=== PATIENT | male | born 1950 | race Caucasian/White ===

== ENCOUNTER 2017-04-07 11:33 | Emergency (ER) | payer MEDICARE, MEDICAID ==
[~2017-04-07] VITALS: Ht 167.6 cm; Wt 61.5 kg
[~2017-04-07 11:33] MED LIST: ACET325T PO; ASPI81TA81 PO; ATOR40TA16 PO; Aspirin Chew CHEW; COUM5TAB PO; LIPI40TA PO; LISI-519 PO; METO25TA3 PO; Pill Splitter OTHER; [UNRECOGNIZED DRUG - CODE] TD
[2017-04-07 11:41] VITALS: BP 86/56; PULSE 73; PULSE 81; RESP 16; RESP 21; TEMP 97.6; TEMP 97.8; O2SAT 98
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
[2017-04-07] MEDS ORDERED: NITR0.1D T-DERMAL (12:03)
[2017-04-07] MEDS ORDERED: TIZA4TAB PO (12:03)
[2017-04-07] MEDS ORDERED: ZINC220T PO (12:03)
[2017-04-07] MEDS ORDERED: GENT0.1O2 TOPICAL (12:03)
[2017-04-07] MEDS ORDERED: ASCO500T PO (12:03)
[2017-04-07] MEDS ORDERED: NUED20CA PO (12:03)
[2017-04-07] MEDS ORDERED: IPRASOL NEB (12:03)
[2017-04-07] MEDS ORDERED: TYLE325T PO (12:03)
[2017-04-07] MEDS ORDERED: COUM1TAB PO (12:03)
[2017-04-07] MEDS ORDERED: ZOFR4TAB PO (12:03)
[2017-04-07] MEDS ORDERED: COUM4TAB PO (12:03)
[2017-04-07] MEDS ORDERED: ATIV2INJ2 IM (12:03)
[2017-04-07] MEDS ORDERED: MULTTAB4 PO (12:03)
[2017-04-07 12:28] LABS: INTERNATIONAL NORMALIZED RATIO 3.2 RATIO; PROTHROMBIN TIME - PATIENT 36.9 SEC (9.8-11.6)
--- NOTE | 2017-04-07 12:32 | RADRPT ---
EXAM DATE/TIME: 04/07/2017 12:14 [facility] COMPARISON: MRI BRAIN W/O CONTRAST, September 06, 2016, 19:52. CT BRAIN W/O CONTRAST, September 06, 2016, 15:56. INDICATIONS : Trauma; fall. RADIATION DOSE: 32.35 CTDIvol (mGy) MEDICAL HISTORY : Stroke. Cardiovascular disease Hypertension. SURGICAL HISTORY : None. ENCOUNTER: Initial ACUITY: 1 day PAIN SCALE: 3/10 LOCATION: cranial TECHNIQUE: Multiple contiguous axial images were obtained of the head. Using automated exposure control and adj ustment of the mA and/or kV according to patient size, radiation dose was kept as low as reasonably a chievable to obtain optimal diagnostic quality images. DICOM format image data is available electro nically for review and comparison. FINDINGS: There is no evidence for intracranial hemorrhage, mass effect, mass lesions, or edema. The visualize d bony structures appear intact. Slight degree of brain atrophy is seen. Slight periventricular whit e matter changes are seen nonspecific mostly consistent with chronic small vessel ischemic changes. There are no signs of acute infarction for technique. There is bilateral encephalomalacia involving t he right frontal, parietal temporal lobes and left occipital lobe at the site of previously seen infa rctions. CONCLUSION: Chronic changes and old infarctions. Ana Vasques MD on April 07, 2017 at 12:28 Board Certified Radiologist. This report was verified electronically.
[2017-04-07 12:56] VITALS: BP 90/56; PULSE 69; RESP 16; O2SAT 99
[2017-04-07] MEDS ORDERED: SODIUM CHLOR 0.9% 1000 ML INJ 1,000 ML IV ONE (13:00)
[2017-04-07 13:24] VITALS: BP 99/64; PULSE 68; RESP 15; O2SAT 99
[2017-04-07 13:48] VITALS: BP 103/60; PULSE 63; RESP 18; O2SAT 99
[2017-04-07 14:29] LABS: POTASSIUM 4.3 MEQ/L (3.5-5.1)
[2017-04-07 15:32] VITALS: BP 122/57; PULSE 69; RESP 18; O2SAT 98
== END 2017-04-07 16:59 | disposition home or self-care (01) ==
LOC: NEPC 11:33
DX: S09.90XA Unspecified injury of head, initial encounter (principal); W06.XXXA Fall from bed, initial encounter; Y92.129 Unspecified place in nursing home as the place of occurrence of the external cause; Z79.01 Long term (current) use of anticoagulants
CPT/HCPCS: 70450; 80048; 85610; 99284; J7030

== ENCOUNTER 2017-06-28 20:53 | Emergency (ER) | payer MEDICARE, MEDICAID ==
[~2017-06-28] VITALS: Ht 177.8 cm; Wt 65.0 kg
[~2017-06-28 20:53] MED LIST changes: -ACET325T PO; +ASCO500T PO; +ATIV2INJ2 IM; -ATOR40TA16 PO; -Aspirin Chew CHEW; +COUM1TAB PO; +COUM4TAB PO; -COUM5TAB PO; +GENT0.1O2 TOPICAL; +IPRASOL NEB; +MULTTAB4 PO; +NITR0.1D T-DERMAL; +NUED20CA PO; -Pill Splitter OTHER; +TIZA4TAB PO; +TYLE325T PO; +ZINC220T PO; +ZOFR4TAB PO; -[UNRECOGNIZED DRUG - CODE] TD
[2017-06-28 21:13] VITALS: BP 108/56; PULSE 60; RESP 16; TEMP 99.3; O2SAT 96
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
--- NOTE | 2017-06-28 21:55 | RADRPT ---
EXAM DATE/TIME: 06/28/2017 21:25 [facility] COMPARISON: CHEST SINGLE AP, September 06, 2016, 15:04. INDICATIONS : Confusion MEDICAL HISTORY : Stroke. Cardiovascular disease Hypertension SURGICAL HISTORY : None. ENCOUNTER: Initial ACUITY: 1 day PAIN SCORE: 0/10 LOCATION: chest FINDINGS: A single view of the chest demonstrates a mild basilar scarring. No focal consolidation. No effusion or pneumothorax. Heart size is within normal limits. CONCLUSION: 1. Minimal basilar scarring. No focal consolidation or effusion. Mack Ozuna MD on June 28, 2017 at 21:52 Board Certified Radiologist. This report was verified electronically.
[2017-06-28 21:56] LABS: AUTOMATED NEUTROPHIL # 4.7 TH/MM3 (1.8-7.7); BASOPHIL % 0.4 % (0.0-2.0); EOSINOPHIL # 0.3 TH/MM3 (0-0.4); EOSINOPHIL % 4.7 % (0.0-4.0); HEMO FLAGS DIFF FINAL; LYMPH % 21.3 % (9.0-44.0); LYMPHOCYTE # 1.5 TH/MM3 (1.0-4.8); MEAN CELL VOLUME 91.5 FL (80.0-100.0); MEAN CORPUSCULAR HGB CONC 33.9 % (32.0-36.0); MONO % 8.3 % (0.0-8.0); NEUT % 65.3 % (16.0-70.0); PLATELET COUNT 208 TH/MM3 (150-450); RED BLOOD COUNT 3.82 MIL/MM3 (4.50-5.90); RED CELL DISTRIBUTION WIDTH 13.8 % (11.6-17.2); WHITE BLOOD COUNT 7.1 TH/MM3 (4.0-11.0)
[2017-06-28 22:14] LABS: GLOMERULAR FILTRATION RATE 85 ML/MIN (>89)
[2017-06-28 22:15] LABS: APTT (PATIENT) 25.8 SEC (24.3-30.1); PROTHROMBIN TIME - PATIENT 11.2 SEC (9.8-11.6)
[2017-06-28 22:16] LABS: ANION GAP 4 MEQ/L (5-15); BICARBONATE 28.6 MEQ/L (21.0-32.0); BLOOD UREA NITROGEN 19 MG/DL (7-18); CHLORIDE 106 MEQ/L (98-107); POTASSIUM 4.6 MEQ/L (3.5-5.1); SODIUM (NA) 139 MEQ/L (136-145)
--- NOTE | 2017-06-28 22:20 | RADRPT ---
EXAM DATE/TIME: 06/28/2017 21:57 [facility] COMPARISON: No previous studies available for comparison. INDICATIONS : Altered mental status. Confusion. RADIATION DOSE: 56.35 CTDIvol (mGy) MEDICAL HISTORY : Cerebrovascular disease. Hypertension. SURGICAL HISTORY : None. ENCOUNTER: Initial ACUITY: 1 day PAIN SCALE: 0/10 LOCATION: cranial TECHNIQUE: Multiple contiguous axial images were obtained of the head. Using automated exposure control and adj ustment of the mA and/or kV according to patient size, radiation dose was kept as low as reasonably a chievable to obtain optimal diagnostic quality images. DICOM format image data is available electro nically for review and comparison. FINDINGS: Compare April 07. Again seen is remote infarct in the right hemisphere predominantly involving the rig ht parietal region. Also remote small infarct left occipital lobe. Chronic white matter ischemic gillette ges. No significant change from March. No abnormal extra-axial fluid. No acute bony abnormalities. Pre vious fixation left maxillary sinus. CONCLUSION: 1. Stable exam since April 07. Remote infarct right hemisphere mostly posteriorly and small remote inf arct left occipital lobe. Mack Ozuna MD on June 28, 2017 at 22:16 Board Certified Radiologist. This report was verified electronically.
[2017-06-29 06:02] VITALS: BP 115/65
== END 2017-06-29 06:08 ==
LOC: NEPD 20:53
DX: R41.0 Disorientation, unspecified (principal); Z86.73 Personal history of transient ischemic attack (TIA), and cerebral infarction without residual deficits; F32.9 Major depressive disorder, single episode, unspecified; E78.5 Hyperlipidemia, unspecified; I10 Essential (primary) hypertension; F17.200 Nicotine dependence, unspecified, uncomplicated; Z79.01 Long term (current) use of anticoagulants; Z79.899 Other long term (current) drug therapy; R79.89 Other specified abnormal findings of blood chemistry
CPT/HCPCS: 70450; 71010; 80048; 83690; 84484; 85025; 85610; 85730; 99285

== ENCOUNTER 2017-11-10 05:05 | Emergency (ER) | payer MEDICARE, MEDICAID ==
[2017-11-10 05:07] VITALS: BP 129/78; PULSE 67; RESP 16; TEMP 98.3; O2SAT 98
[2017-11-10 05:16] VITALS: O2SAT 97
[2017-11-10 05:59] LABS: AUTOMATED NEUTROPHIL # 4.7 TH/MM3 (1.8-7.7); BASOPHIL % 0.5 % (0.0-2.0); EOSINOPHIL # 0.3 TH/MM3 (0-0.4); EOSINOPHIL % 3.5 % (0.0-4.0); HEMATOCRIT 40.4 % (39.0-51.0); HEMOGLOBIN 13.5 GM/DL (13.0-17.0); LYMPH % 25.2 % (9.0-44.0); LYMPHOCYTE # 1.8 TH/MM3 (1.0-4.8); MEAN CELL VOLUME 89.2 FL (80.0-100.0); MEAN CORPUSCULAR HEMOGLOBIN 29.9 PG (27.0-34.0); MEAN CORPUSCULAR HGB CONC 33.6 % (32.0-36.0); MONO % 6.5 % (0.0-8.0); MONOCYTE # 0.5 TH/MM3 (0-0.9); NEUT % 64.3 % (16.0-70.0); PLATELET COUNT 267 TH/MM3 (150-450); RED BLOOD COUNT 4.53 MIL/MM3 (4.50-5.90); RED CELL DISTRIBUTION WIDTH 14.1 % (11.6-17.2); WHITE BLOOD COUNT 7.3 TH/MM3 (4.0-11.0)
[2017-11-10 06:00] VITALS: BP 108/62; PULSE 58; RESP 16; O2SAT 98
--- NOTE | 2017-11-10 06:00 | RADRPT ---
EXAM DATE/TIME: 11/10/2017 05:44 [facility] COMPARISON: CT BRAIN W/O CONTRAST, June 28, 2017, 21:57. INDICATIONS : Syncope; possible seizure. RADIATION DOSE: 56.35 CTDIvol (mGy) MEDICAL HISTORY : Myocardial infarction. Cerebrovascular disease. Hypercholesterolemia.Hypertension SURGICAL HISTORY : None. ENCOUNTER: Initial ACUITY: 1 day PAIN SCALE: 0/10 LOCATION: cranial TECHNIQUE: Multiple contiguous axial images were obtained of the head. Using automated exposure control and adj ustment of the mA and/or kV according to patient size, radiation dose was kept as low as reasonably a chievable to obtain optimal diagnostic quality images. DICOM format image data is available electro nically for review and comparison. FINDINGS: CEREBRUM: The ventricles are normal for age. No evidence of midline shift, mass lesion, hemorrhage or acute in farction. No extra-axial fluid collections are seen. Encephalomalacia related to an old infarct of t he right parietal, occipital and temporal lobes again noted. A small cortical and white matter old in farct is seen of the left occipital lobe. There is also some white matter encephalomalacia of the rig ht frontal lobe. Diffuse chronic white matter changes otherwise. POSTERIOR FOSSA: The cerebellum and brainstem are intact. The 4th ventricle is midline. The cerebellopontine angle i s unremarkable. EXTRACRANIAL: The visualized portion of the orbits is acutely intact. Previous facial reconstruction on the left. SKULL: The calvaria is intact. No evidence of skull fracture. CONCLUSION: 1. No acute intracranial abnormality demonstrated. 2. Chronic ischemic and infarct changes as above; no change from prior study. Fam Glez MD on November 10, 2017 at 5:57 Board Certified Radiologist. This report was verified electronically.
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
[2017-11-10 06:09] LABS: BICARBONATE 27.2 MEQ/L (21.0-32.0); BLOOD UREA NITROGEN 12 MG/DL (7-18); CALCIUM 8.7 MG/DL (8.5-10.1); CHLORIDE 107 MEQ/L (98-107); GLOMERULAR FILTRATION RATE 75 ML/MIN (>89); GLUCOSE,RANDOM 94 MG/DL (74-106); SODIUM (NA) 141 MEQ/L (136-145)
[2017-11-10] MEDS ORDERED: COUM7.5T PO (06:11)
[2017-11-10] MEDS ORDERED: [UNRECOGNIZED DRUG - CODE] T-DERMAL (06:11)
--- NOTE | 2017-11-10 06:33 | RADRPT ---
EXAM DATE/TIME: 11/10/2017 06:22 [facility] COMPARISON: CHEST SINGLE AP, June 28, 2017, 21:25. INDICATIONS : Syncopal episode. MEDICAL HISTORY : Cerebrovascular disease. Hypercholesterolemia. Hypertension. [place] SURGICAL HISTORY : None. ENCOUNTER: Initial ACUITY: 1 day PAIN SCORE: 0/10 LOCATION: Bilateral chest FINDINGS: A single view of the chest demonstrates the lungs to be symmetrically aerated without evidence of mas s, infiltrate or effusion. The cardiomediastinal contours are unremarkable. Osseous structures are intact. CONCLUSION: No acute cardiopulmonary disease demonstrated. Fam Glez MD on November 10, 2017 at 6:31 Board Certified Radiologist. This report was verified electronically.
[2017-11-10 06:37] LABS: TROPONIN I LESS THAN 0.02 NG/ML (0.02-0.05)
[2017-11-10 07:36] LABS: BACTERIA, URINE RARE /hpf; BILIRUBIN, URINE NEG (NEG); BLOOD, URINE NEG (NEG); GLUCOSE,URINE NEG (NEG); HYALINE CAST, URINE 4 /lpf (RARE); KETONE, URINE NEG (NEG); MUCUS URINE FEW /lpf (OCC); NITRITE,URINE NEG (NEG); URINE COLOR YELLOW (YELLW/STRAW); URINE LEUKOCYTE ESTERASE NEG (NEG)
--- NOTE | 2017-11-10 08:12 | PD ---
Physical Exam Narrative Patient signed out to me by Dr. Pickett, please see her documentation for complete details. Briefly, patient is a 67 year old male sent from his [facility] for possible seizure activity. Patient was not observed to have any seizure like activity by EMS or here in the ED. Currently, patient is resting comfortably. Lungs CTA, heart RRR. Data Data Last Documented VS Vital Signs Date Time Temp Pulse Resp B/P (MAP) Pulse Ox O2 Delivery O2 Flow Rate FiO2 11/10/17 06:00 58 16 108/62 (77) 98 Room Air 11/10/17 05:07 98.3 Orders Orders Blood Glucose (11/10/17 05:13) Iv Access Insert/Monitor (11/10/17 05:13) Ecg Monitoring (11/10/17 05:13) Oxygen Administration (11/10/17 05:13) Basic Metabolic Panel (Bmp) (11/10/17 05:13) Complete Blood Count With Diff (11/10/17 05:13) Urinalysis - C+S If Indicated (11/10/17 05:13) Electrocardiogram (11/10/17 ) Oximetry (11/10/17 05:13) Ct Brain W/O Iv Contrast(Rout) (11/10/17 ) Chest, Single Ap (11/10/17 ) Troponin I (11/10/17 05:15) Labs Laboratory Tests Test 11/10/17 05:15 11/10/17 06:50 White Blood Count 7.3 TH/MM3 Red Blood Count 4.53 MIL/MM3 Hemoglobin 13.5 GM/DL Hematocrit 40.4 % Mean Corpuscular Volume 89.2 FL Mean Corpuscular Hemoglobin 29.9 PG Mean Corpuscular Hemoglobin Concent 33.6 % Red Cell Distribution Width 14.1 % Platelet Count 267 TH/MM3 Mean Platelet Volume 9.0 FL Neutrophils (%) (Auto) 64.3 % Lymphocytes (%) (Auto) 25.2 % Monocytes (%) (Auto) 6.5 % Eosinophils (%) (Auto) 3.5 % Basophils (%) (Auto) 0.5 % Neutrophils # (Auto) 4.7 TH/MM3 Lymphocytes # (Auto) 1.8 TH/MM3 Monocytes # (Auto) 0.5 TH/MM3 Eosinophils # (Auto) 0.3 TH/MM3 Basophils # (Auto) 0.0 TH/MM3 CBC Comment DIFF FINAL Differential Comment Blood Urea Nitrogen 12 MG/DL Creatinine 1.00 MG/DL Random Glucose 94 MG/DL Calcium Level 8.7 MG/DL Sodium Level 141 MEQ/L Potassium Level 4.2 MEQ/L Chloride Level 107 MEQ/L Carbon Dioxide Level 27.2 MEQ/L Anion Gap 7 MEQ/L Estimat Glomerular Filtration Rate 75 ML/MIN Troponin I LESS THAN 0.02 NG/ML Urine Color YELLOW Urine Turbidity CLEAR Urine pH 6.0 Urine Specific [place] 1.015 Urine Protein TRACE mg/dL Urine Glucose (UA) NEG mg/dL Urine Ketones NEG mg/dL Urine Occult Blood NEG Urine Nitrite NEG Urine Bilirubin NEG Urine Urobilinogen LESS THAN 2.0 MG/DL Urine Leukocyte Esterase NEG Urine RBC 1 /hpf Urine WBC 1 /hpf Urine Bacteria RARE /hpf Urine Hyaline Casts 4 /lpf Urine Granular Casts 3 /lpf Urine Mucus FEW /lpf Microscopic Urinalysis Comment CULT NOT INDICATED MDM Supervised Visit with ROSALVA: No Narrative Course Labs show no acute abnormalities. Urinalysis is negative for UTI. CT head performed shows no acute abnormalities. Patient will be discharged back to his facility. Advised to follow up with his doctor. Advised to return at any time for any worsening symptoms. Diagnosis Primary Impression: Seizure-like activity Patient Instructions: General Instructions, New Onset Absence Seizures in Adults (ED) Additional Instruction: It is unclear whether or not you had a seizure. Follow up with your doctor. Return to the ED as needed for any worsening symptoms. Disposition: 01 DISCHARGE HOME Condition: Stable Ellie Vazquez MD Nov 10, 2017 08:12
[2017-11-10 08:38] VITALS: BP 139/77
[2017-11-10 11:45] VITALS: BP 145/78
--- NOTE | 2017-11-10 12:48 | EKG ---
Date Performed: 11/10/2017 Time Performed: 05:21:50 PTAGE: 67 years EKG: Sinus rhythm LEFT ANTERIOR FASCICULAR BLOCK ABNORMAL ECG PREVIOUS TRACING : 09/07/2016 03.11 Compared to previous tracing, inferior and lateral T wave i nversion has resolved. DOCTOR: Rah Washington Interpretating Date/Time 11/10/2017 12:47:17
== END 2017-11-10 13:28 | disposition home or self-care (01) ==
LOC: NEPC 05:05
DX: R56.9 Unspecified convulsions (principal); E78.00 Pure hypercholesterolemia, unspecified; I10 Essential (primary) hypertension; I25.2 Old myocardial infarction; I25.10 Atherosclerotic heart disease of native coronary artery without angina pectoris; R94.31 Abnormal electrocardiogram [ECG] [EKG]; Z79.01 Long term (current) use of anticoagulants
CPT/HCPCS: 70450; 71045; 80048; 81001; 84484; 85025; 93005; 99285

== ENCOUNTER 2018-03-29 05:06 | Observation (INO) ==
--- NOTE | 2018-03-29 05:20 | ED ---
HPI General Chief Complaint: Altered Mental Status Stated Complaint: Medical/EVAC [facility] Time Seen by Provider: 03/29/18 05:12 Source: patient and old records reviewed Mode of arrival: EMS History of Present Illness HPI Narrative: 67-year-old man, resident of [facility], history of stroke with left-sided contractures and hemiparesis, as well as protein S deficiency on this, presents to the emergency department after reported seizure activity. History is obtained from EMS. Nursing staff stated that roommate heard him thrashing around witnessed seizure-like activity. On EMS arrival he appeared postictal. He has been coming around since then. Patient states he feels fine. No headache. Otherwise been feeling generally well and healthy prior to this. Related Data Home Medications Medication Instructions Recorded Confirmed apixaban [Eliquis] BID 03/29/18 aspirin [Aspir-81] 81 mg PO DAILY 03/29/18 03/29/18 atorvastatin [Lipitor] 40 mg PO DAILY 03/29/18 03/29/18 dextromethorphan-quinidine 1 cap PO Q12H 03/29/18 03/29/18 [Nuedexta] escitalopram oxalate [Lexapro] 10 mg PO DAILY 03/29/18 03/29/18 lisinopril 5 mg PO DAILY 03/29/18 03/29/18 metoprolol succinate 12.5 mg PO BID 03/29/18 03/29/18 mirtazapine 7.5 mg PO DAILY 03/29/18 03/29/18 multivitamin [Multiple Vitamins] 1 tab PO DAILY 03/29/18 03/29/18 nitroglycerin [Nitro-Dur] 03/29/18 tizanidine 4 mg PO BID PRN 03/29/18 03/29/18 Allergies Allergy/AdvReac Type Severity Reaction Status Date / Time No Known Allergies Allergy Unverified 03/29/18 05:42 Review of Systems ROS Unobtainable unobtainable due to mental condition PMFSH Medical History Medical History CVA (cerebral vascular accident) (Acute) Depression (Acute) HTN (hypertension) (Acute) Left spastic hemiplegia (Acute) Protein S deficiency (Acute) Social History Social History Recent Out of Country Travel within the Last 8 Weeks: No Exam Narrative Exam Narrative: GENERAL: 67-year-old man, no acute distress. SKIN: Focused skin assessment warm/dry. HEAD: Atraumatic. Normocephalic. EYES: Pupils equal and round. No scleral icterus. No injection or drainage. ENT: No nasal bleeding or discharge. Mucous membranes pink and moist. NECK: Trachea midline. No JVD. CARDIOVASCULAR: Regular rate and rhythm. No murmur appreciated. RESPIRATORY: No accessory muscle use. Clear to auscultation. Breath sounds equal bilaterally. GASTROINTESTINAL: Abdomen soft, non-tender, nondistended. Hepatic and splenic margins not palpable. MUSCULOSKELETAL: No obvious deformities. Flexion contractures of the left upper extremity elbow and the wrist. NEUROLOGICAL: Awake and alert. Dysarthric speech. Minimal facial asymmetry. Left arm with spastic paresis the elbow and the wrist. Course Initial Documented Vital Signs Pulse Rate 60 03/29/18 05:16 Respiratory Rate 18 03/29/18 05:16 Blood Pressure 127/63 03/29/18 05:16 Pulse Oximetry 99 03/29/18 05:16 Last Documented Vital Signs Pulse Rate 60 03/29/18 05:16 Respiratory Rate 18 03/29/18 05:16 Blood Pressure 127/63 03/29/18 05:16 Pulse Oximetry 97 03/29/18 05:21 Medical Decision Making [facility] Narrative Medical decision making narrative: 67-year-old man, history of strokes, on Eliquis for here with possible seizure. Looks well. EMS reports postictal confusion. Will check CT, labs, reassess. Workups unremarkable. 67-year-old man, extensive medical history, possible first-time seizure. No recurrent seizures in the ED. recommend follow-up as an outpatient. Lab Data Lab results reviewed: Yes I reviewed the patient's lab results. Result diagrams: 03/29/18 05:20 03/29/18 05:20 Lab Results 03/29/18 03/29/18 03/29/18 Range/Units 05:20 05:20 05:20 WBC 7.5 (4.0-11.0) th/mm3 RBC 4.42 L (4.50-5.90) mil/mm3 Hgb 13.4 (13.0-17.0) gm/dL Hct 40.1 (39.0-51.0) % MCV 90.8 (80.0-100.0) fL MCH 30.4 (27.0-34.0) pg MCHC 33.5 (32.0-36.0) % RDW 14.1 (11.6-17.2) % Plt Count 236 (150-450) th/mm3 MPV 8.9 (7.0-11.0) fL Neut % (Auto) 71.8 H (16.0-70.0) % Lymph % (Auto) 18.6 (9.0-44.0) % [place] % (Auto) 6.5 (0.0-8.0) % Eos % (Auto) 2.7 (0.0-4.0) % Baso % (Auto) 0.4 (0.0-2.0) % Neut # (Auto) 5.4 (1.8-7.7) th/mm3 Lymph # (Auto) 1.4 (1.0-4.8) th/mm3 [place] # (Auto) 0.5 (0.0-0.9) th/mm3 Eos # (Auto) 0.2 (0.0-0.4) th/mm3 Baso # (Auto) 0.0 (0.0-0.2) th/mm3 WBC Differential . Differential Comment Auto diff final PT 10.4 (9.8-11.6) sec INR 1.0 Ratio APTT 25.5 (24.3-30.1) sec Sodium 143 (136-145) meq/L Potassium 3.9 (3.5-5.1) meq/L Chloride 107 (98-107) meq/L Carbon Dioxide 28.2 (21.0-32.0) meq/L Anion Gap 8 (5-15) meq/L BUN 16 (7-18) mg/dL Creatinine 0.95 (0.60-1.30) mg/dL Estimated GFR 79 L (>89) mL/min Random Glucose 87 (74-106) mg/dL Calcium 8.8 (8.5-10.1) mg/dL Total Creatine Kinase 119 (39-308) U/L Troponin I Less than 0.02 L (0.02-0.05) ng/mL Imaging Data Radiologist's impression: ITS Impressions Head CT 03/29/18 05:12 CONCLUSION: 1. No acute intracranial abnormality. 2. Multifocal old infarcts. Chest X-Ray 03/29/18 05:13 CONCLUSION: No acute cardiopulmonary disease Head CT negative, chest x-ray negative Discharge Plan Discharge Disposition Patient Disposition: 03 Discharge to SNF Discharge Condition Condition: Stable Discharge Order Discharge Orders: Discharge Order (Routine); Ordered 03/29/18 Ordered By: Anish Bentley Discharge Details Diagnosis: Seizure Physicians Team ED Provider: Anish Bentley Primary Care Provider: Papa Sigala Rxs /Orders / Referrals /Forms Prescriptions: No Action apixaban [Eliquis] 5 mg Tablet BID RF: 0 multivitamin [Multiple Vitamins] Tablet 1 tab PO DAILY RF: 0 atorvastatin [Lipitor] 40 mg Tablet 40 mg PO DAILY RF: 0 nitroglycerin [Nitro-Dur] 0.1 mg/hr Patch 24 Hour RF: 0 tizanidine 4 mg Tablet 4 mg PO BID PRN (Reason: Muscle Spasm) RF: 0 aspirin [Aspir-81] 81 mg Tablet,Delayed Release (Dr/Ec) 81 mg PO DAILY RF: 0 lisinopril 5 mg Tablet 5 mg PO DAILY RF: 0 metoprolol succinate 25 mg Tablet Extended Release 24 Hr 12.5 mg PO BID RF: 0 escitalopram oxalate [Lexapro] 10 mg Tablet 10 mg PO DAILY RF: 0 mirtazapine 7.5 mg Tablet 7.5 mg PO DAILY RF: 0 dextromethorphan-quinidine [Nuedexta] 20-10 mg Capsule 1 cap PO Q12H RF: 0 Discharge Instructions Patient Printed Instructions: Altered Mental Status (ED) Additional Instructions: Patient with possible first-time seizure. ED workup negative. Recommend outpatient follow-up with neurology. Status ED Status: Ready for Discharge
--- NOTE | 2018-03-29 05:46 | CT ---
EXAM DATE: 03/29/2018 5:41 AM EDT AGE/SEX: 67 years / Male INDICATIONS: Altered mental status. Seizure. CLINICAL DATA: This is the patient's initial encounter. Patient reports that signs and symptoms have been present for 1 day and indicates a pain score of Nonresponsive. MEDICAL/SURGICAL HISTORY: Cerebrovascular disease. Hypertension. None. RADIATION DOSE: 56.35 CTDI (mGy) COMPARISON: [facility] – [place], [place] BRAIN W/O CONTRAST, 11/10/2017. . TECHNIQUE: CT of the head without contrast. Using automated exposure control and adjustment of the mA and/or kV according to patient size, radiation dose was kept as low as reasonably achievable to ob tain optimal diagnostic quality images. DICOM format image data is available electronically for revi ew and comparison. FINDINGS: Cerebrum: Old infarcts/encephalomalacia in the right frontal lobe, right parietal lobe and left occi pital lobe are stable in appearance. High density again seen within the right parietal infarct, stabl e in appearance. Scattered areas of low attenuation throughout the white matter. The ventricles are n ormal for age. No evidence of midline shift, mass lesion, hemorrhage or acute infarction. No extraa xial fluid collections are seen. Posterior Fossa: The cerebellum and brainstem are intact. The 4th ventricle is midline. The cerebe llopontine angle is unremarkable. Extracranial: The visualized portion of the orbits is intact. Plate and screws along the left maxill lillian sinus. Bilateral maxillary sinus disease. Skull: The calvaria is intact. No evidence of skull fracture. CONCLUSION: 1. No acute intracranial abnormality. 2. Multifocal old infarcts. Electronically signed by: Freddy Wooten MD 03/29/2018 5:45 AM EDT
--- NOTE | 2018-03-29 05:47 | XR ---
EXAM DATE: 03/29/2018 5:33 AM EDT AGE/SEX: 67 years / Male INDICATIONS: Syncope. CLINICAL DATA: This is the patient's initial encounter. Patient reports that signs and symptoms have been present for 1 day and indicates a pain score of 0/10. MEDICAL/SURGICAL HISTORY: . Myocardial infarction. Cerebrovascular disease. Hypercholesterolemi a.Hypertension. Stroke. None. [place] [facility] [place] . FINDINGS: A single AP view of the chest demonstrates the lungs to be symmetrically aerated without evidence of mass, infiltrate or effusion. The cardiomediastinal contours are unremarkable. Osseous structures a re intact. CONCLUSION: No acute cardiopulmonary disease Electronically signed by: Freddy Wooten MD 03/29/2018 5:45 AM EDT
[2018-03-29 06:00] LABS: Baso % (Auto) 0.4 % (0.0-2.0); Eos # (Auto) 0.2 th/mm3 (0.0-0.4); Eos % (Auto) 2.7 % (0.0-4.0); Hematocrit 40.1 % (39.0-51.0); Hemoglobin 13.4 gm/dL (13.0-17.0); Lymph # (Auto) 1.4 th/mm3 (1.0-4.8); Lymph % (Auto) 18.6 % (9.0-44.0); Mean Corpuscular HGB Conc 33.5 % (32.0-36.0); Mean Corpuscular Hemoglobin 30.4 pg (27.0-34.0); Mean Corpuscular Volume 90.8 fL (80.0-100.0); Mean Platelet Volume 8.9 fL (7.0-11.0); Mono # (Auto) 0.5 th/mm3 (0.0-0.9); Mono % (Auto) 6.5 % (0.0-8.0); Neut # (Auto) 5.4 th/mm3 (1.8-7.7); Neut % (Auto) 71.8 % (16.0-70.0); Platelet Count 236 th/mm3 (150-450); Red Blood Count 4.42 mil/mm3 (4.50-5.90); Red Cell Distribution Width 14.1 % (11.6-17.2); White Blood Count 7.5 th/mm3 (4.0-11.0)
[2018-03-29 06:22] LABS: Activated Partial Thrombo Time 25.5 sec (24.3-30.1); Prothrombin Time 10.4 sec (9.8-11.6)
[2018-03-29 06:24] LABS: Anion Gap 8 meq/L (5-15); Blood Urea Nitrogen 16 mg/dL (7-18); Calcium 8.8 mg/dL (8.5-10.1); Carbon Dioxide 28.2 meq/L (21.0-32.0); Chloride 107 meq/L (98-107); Glomerular Filtration Rate 79 mL/min (>89); Glucose,Random 87 mg/dL (74-106); Potassium 3.9 meq/L (3.5-5.1); Sodium 143 meq/L (136-145)
[2018-03-29 06:27] LABS: Creatine Kinase 119 U/L (39-308)
[2018-03-29 06:39] LABS: Creatine Kinase MB 2.2 ng/mL (0.5-3.6)
--- NOTE | 2018-03-29 11:14 | P.HPIM ---
History of Present Illness Primary Care Physician: Papa Sigala MD Chief Complaint: seizure History of Present Illness: patient is a 67 y/o male with history of CVA,CAD,hypertension, dyslipidemia who was brought to ER after he had a seizure at [facility].although he doesn't recall the seizure. he says that he started some epigastric pain earlier today. pain had no radiation and with no associated nausea,vomiting, sob. while he was being evaluated in ER he had another witnessed seizure in ER. at the time of my evaluation he was resting comfortably with no distress. he was pain free. Inpatient Certification: I certify that the inpatient services were ordered in accordance with Medicare regulations governing the order. This includes certification that hospital inpatient services are reasonable and necessary and in the case of services not specified as inpatient-only under 42 CFR 419.22(n), that they are appropriately provided as inpatient services in accordance to with the 2-midnight benchmark under 43 CFR 412.3(e) Review of Systems All other systems reviewed negative except as stated in HPI PMFSH - History History Provided By: Ssrs Developer / EMT - Medical History Medical History: Medical History (Last Reviewed 03/29/18 @ 05:21 by Yohana Looney) CVA (cerebral vascular accident) Depression HTN (hypertension) Left spastic hemiplegia Protein S deficiency - Tobacco History Smoking Status: Never smoker - Alcohol History How Often Do You Have a Drink Containing Alcohol: Never - Travel History Recent Travel Out of the Country Within the Last 8 Weeks: No - Immunization History Tetanus Immunization: Unsure Medications and Allergies Active Medications: Active Medications Aspirin (Ecotrin) 81 mg PO DAILY [place] Atorvastatin Calcium (Lipitor) 40 mg PO DAILY [place] Escitalopram Oxalate (Lexapro) 10 mg PO DAILY [place] Sodium Chloride (Ns Inj) 1,000 mls @ 100 mls/hr IV.CONT .Q10H [place] Lisinopril (Prinivil) 5 mg PO DAILY [place] Metoprolol Succinate (Toprol Xl) 12.5 mg PO BID [place] Non-Formulary Medication (Mirtazapine [Mirtazapine]) 7.5 mg PO DAILY [place] Sodium Chloride (Ns Flush) 2 ml IV.FLUSH PRN PRN PRN Reason: FLUSH AFTER USING IV ACCESS Allergies Allergy/AdvReac Type Severity Reaction Status Date / Time No Known Allergies Allergy Unverified 03/29/18 05:42 Home Medications Medication Instructions Recorded Confirmed Type apixaban [Eliquis] BID 03/29/18 History aspirin [Aspir-81] 81 mg PO DAILY 03/29/18 03/29/18 History atorvastatin [Lipitor] 40 mg PO DAILY 03/29/18 03/29/18 History dextromethorphan-quinidine 1 cap PO Q12H 03/29/18 03/29/18 History [Nuedexta] escitalopram oxalate [Lexapro] 10 mg PO DAILY 03/29/18 03/29/18 History lisinopril 5 mg PO DAILY 03/29/18 03/29/18 History metoprolol succinate 12.5 mg PO BID 03/29/18 03/29/18 History mirtazapine 7.5 mg PO DAILY 03/29/18 03/29/18 History multivitamin [Multiple Vitamins] 1 tab PO DAILY 03/29/18 03/29/18 History nitroglycerin [Nitro-Dur] 03/29/18 History tizanidine 4 mg PO BID PRN 03/29/18 03/29/18 History Exam Vital signs: Vital Signs 03/29/18 05:16 03/29/18 05:21 03/29/18 05:23 Pulse Rate 60 Respiratory Rate 18 Blood Pressure 127/63 Pulse Oximetry 99 97 98 03/29/18 07:33 03/29/18 09:17 Pulse Rate 86 Respiratory Rate 16 Blood Pressure 128/77 Pulse Oximetry 98 95 Intake & Output 03/28/18 03/29/18 03/29/18 18:59 06:59 18:59 Weight 70.307 kg - Constitutional no acute distress - Routine HEENT Exam Head: Present: normocephalic - Routine Neck Exam Present: supple, full ROM - Routine Respiratory Exam Present: CTA bilaterally - Routine Cardiovascular Exam Present: RRR - Routine Abdominal Exam Present: soft - Routine Extremities Exam Comments: contracted left upper extremity. - Routine Neurological Exam Present: alert, oriented X3 left sided weakness. Results - Labs CBC & Chem 7: 03/29/18 05:20 03/29/18 05:20 Labs: Short CBC 03/29/18 Range/Units 05:20 WBC 7.5 (4.0-11.0) th/mm3 Hgb 13.4 (13.0-17.0) gm/dL Hct 40.1 (39.0-51.0) % Plt Count 236 (150-450) th/mm3 BMP 03/29/18 05:20 Sodium 143 Potassium 3.9 Chloride 107 Carbon Dioxide 28.2 BUN 16 Creatinine 0.95 Calcium 8.8 Cardiac Enzymes 03/29/18 Range/Units 05:20 Total Creatine Kinase 119 (39-308) U/L CK-MB (CK-2) 2.2 (0.5-3.6) ng/mL Troponin I Less than 0.02 L (0.02-0.05) ng/mL - Imaging Impressions Head CT 03/29/18 05:12 CONCLUSION: 1. No acute intracranial abnormality. 2. Multifocal old infarcts. Chest X-Ray 03/29/18 05:13 CONCLUSION: No acute cardiopulmonary disease Caprini VTE Risk Assessment Caprini VTE Risk Assessment: Moderate/High Risk (score >= 2) Caprini Risk Assessment Model: Point Value = 1 Point Value = 2 Point Value = 3 Point Value = 5 Age 41-60 Minor surgery BMI > 25 kg/m2 Swollen legs Varicose veins or History of unexplained or recurrent spontaneous Oral contraceptives or hormone replacement Sepsis (< 1 month) Serious lung disease, including pneumonia (< 1 month) Abnormal pulmonary function Acute myocardial infarction Congestive heart failure (< 1 month) History of inflammatory bowel disease Medical patient at bed rest Age 61-74 Arthroscopic surgery Major open surgery (> 45 min) Laparoscopic surgery (> 45 min) Malignancy Confined to bed (> 72 hours) Immobilizing plaster cast Central venous access Age >= 75 History of VTE Family history of VTE Factor V Leiden Prothrombin [id number] Lupus anticoagulant Anticardiolipin antibodies Elevated serum homocysteine Heparin-induced thrombocytopenia Other congenital or acquired thrombophilia Stroke (< 1 month) Elective arthroplasty Hip, pelvis, or leg fracture Acute spinal cord injury (< 1 month) Prophylaxis Regimen: Total Risk Factor Score Risk Level Prophylaxis Regimen 0-1 Low Early ambulation 2 Moderate Order ONE of the following: *Sequential Compression Device (SCD) *Heparin 5000 units SQ BID 3-4 Higher Order ONE of the following medications: *Heparin 5000 units SQ TID *Enoxaparin/Lovenox 40 mg SQ daily (WT < 150 kg, CrCl > 30 mL/min) *Enoxaparin/Lovenox 30 mg SQ daily (WT < 150 kg, CrCl > 10-29 mL/min) *Enoxaparin/Lovenox 30 mg SQ BID (WT < 150 kg, CrCl > 30 mL/min) AND/OR *Sequential Compression Device (SCD) 5 or more Highest Order ONE of the following medications: *Heparin 5000 units SQ TID (Preferred with Epidurals) *Enoxaparin/Lovenox 40 mg SQ daily (WT < 150 kg, CrCl > 30 mL/min) *Enoxaparin/Lovenox 30 mg SQ daily (WT < 150 kg, CrCl > 10-29 mL/min) *Enoxaparin/Lovenox 30 mg SQ BID (WT < 150 kg, CrCl > 30 mL/min) AND *Sequential Compression Device (SCD) Assessment and Plan - Plan - seizure- new onset seizure precautions- ativan as needed- consult neurology. -chest pain with history of CAD continue aspirin, BB and statin- trend the cardiac enzymes- currently chest pain free. -history of CVA with left sided weakness continue eliquis, aspirin, statin.consult PT -hypertension; resume home med -DNR status Discussed Condition With: ER physician and the patient.
[2018-03-29 13:57] LABS: Lipase 79 U/L (73-393)
--- NOTE | 2018-03-29 14:05 | MB ---
cc: Alley Henderson MD DATE: 03/29/2018 CHIEF COMPLAINT: Seizure. HISTORY OF PRESENT ILLNESS: This is a 67-year-old man with a history of multiple strokes. He states 3 with left hemiparesis, contracture left upper extremity, hypertension, hyperlipidemia, heart disease, who comes in when they noted that he had a seizure at the nursing facility. Currently, he is in the ED in [facility] and he is in no distress, resting comfortably, verbal. PAST MEDICAL HISTORY: As stated, he has a history of protein S deficiency as well. Tobacco, no tobacco history. No alcohol history. MEDICATIONS: His active medicines are: 1. Baby aspirin. 2. Atorvastatin. 3. Lexapro. 4. Lisinopril. 5. Metoprolol. PHYSICAL EXAMINATION: VITAL SIGNS: Pulse 86, respiratory rate 16, blood pressure 128/77, saturating at 95 percent on 2 liters nasal cannula. NECK: Supple. I do not appreciate any bruits. HEART: Regular. NEUROLOGIC: He is awake and alert, dysarthric, not oriented. He thinks he is living here. Pupils are reactive. He has a facial droop on the left. The left arm is contracted, unable to extend at the elbow. His hand is closed. Reflexes are brisk on the left. His left leg, he can lift to antigravity 3/5. Right side is intact. Gait cannot be assessed. Looking at the hospital note, apparently the patient is on Eliquis and baby aspirin, but also on a medicine for called Nuedexta along with his Lexapro. LABS: Labs were reviewed. I would add to his labs, a UA, however. IMAGING: CT head: No acute pathology. Multiple old infarcts. Chest x-ray shows no acute disease. IMPRESSION: Seizure-like event seen at the rehab facility. Certainly can occur in a patient who has had multiple strokes. We will get an electroencephalogram. If not ordered, I will go ahead and order it. Maintain seizure precautions. Consider possibly starting him on some Keppra 500 mg b.i.d. I would also get a urinalysis. If there is a witnessed seizure, prolonged Ativan to be used p.r.n. MD SAMANTHA Griffith/LASHON , 01:50 PM , 02:03 PM
[2018-03-29] MEDS ORDERED: DEXTROMETHORPHAN PO SCH (14:15)
[2018-03-29] MEDS ORDERED: QUINIDINE PO SCH (14:15)
[2018-03-29] MEDS: Sod Chloride 0.9% Inj 1,000 ML IV.CONT SCH ×2 (15:55→22:51)
--- NOTE | 2018-03-29 21:45 | MG ---
cc: Alley Henderson MD, Dalia MD EEG NUMBER [id number] INDICATION: Awake, drowsy with photic stimulation. CT, no acute abnormality. History of multiple old strokes, admitted for possible seizure-like activity, history of stroke with left-sided weakness. Eliquis Aspirin Other medicines. DESCRIPTION OF RECORD: Seems to be overall background rhythm of 8 Hz. Some artifact noted in the eye field. Some questionable slow waves noted over the right frontocentral parietal region. Questionable if artifact comes after that. There is some more slowing at times over the right hemisphere compared to the left, likely due to his stroke history. Photic stimulation does elicit a mild driving response. IMPRESSION: Questionable abnormality noted in one epoch. Not sure if this is of any significance. Otherwise, no other epileptiform features. Clinical correlation. MD SAMANTHA Griffith/ , 09:25 PM , 09:43 PM
[2018-03-30] MEDS ORDERED: Escitalopram 10 MG Tablet PO SCH (09:00)
[2018-03-30] MEDS ORDERED: Mirtazapine 15 MG Tablet PO SCH (09:00)
[2018-03-30] MEDS ORDERED: Lisinopril 5 MG Tablet PO SCH (09:00)
--- NOTE | 2018-03-30 14:29 | P.PNIM ---
Subjective Interval history: The patient was moving about restlessly. He did not indicate any pain. He looked forward to leaving the hospital. Discussed with nursing. Physical Exam Vital signs: Vital Signs 03/29/18 15:55 03/29/18 18:39 03/29/18 18:49 Temperature 97.9 F Pulse Rate 78 75 Respiratory Rate 17 17 Blood Pressure 137/71 134/77 Pulse Oximetry 98 98 96 03/29/18 20:00 03/30/18 00:00 03/30/18 04:00 Temperature 98.5 F 97.9 F 97.6 F Pulse Rate 75 75 72 Respiratory Rate 18 18 18 Blood Pressure 115/68 111/60 130/60 Pulse Oximetry 97 96 95 03/30/18 08:00 03/30/18 09:00 03/30/18 09:40 Temperature 97.5 F L Pulse Rate 82 80 Respiratory Rate 19 Blood Pressure 118/58 L Pulse Oximetry 93 L 93 L 03/30/18 12:00 Temperature 97.5 F L Pulse Rate 75 Respiratory Rate 18 Blood Pressure 138/78 Pulse Oximetry 99 Intake & Output 03/29/18 03/30/18 03/30/18 18:59 06:59 18:59 Intake Total 1120 / 1120 Balance 1120 / 1120 Weight 70.307 kg Intake: IV 1000 / 1000 NS Inj 1,000 ML @ 60 mls/hr IV. 1000 / 1000 CONT .[id number] [place] Rx#:[id number] Oral 120 / 120 Other: # Voids 2 Weight On Admission 70.307 kg Narrative: GENERAL: No acute distress. SKIN: Focused skin assessment warm/dry. HEAD: Atraumatic. Normocephalic. EYES: Pupils equal and round. No scleral icterus. No injection or drainage. ENT: No nasal bleeding or discharge. Mucous membranes pink and moist. NECK: Trachea midline. No JVD. CARDIOVASCULAR: Regular rate and rhythm. No murmur appreciated. RESPIRATORY: No accessory muscle use. Clear to auscultation. Breath sounds equal bilaterally. GASTROINTESTINAL: Abdomen soft, non-tender, nondistended. Hepatic and splenic margins not palpable. MUSCULOSKELETAL: No obvious deformities. Flexion contractures of the left upper extremity elbow and the wrist. NEUROLOGICAL: Awake and alert. Dysarthric speech. Minimal facial asymmetry. Left arm with spastic paresis the elbow and the wrist. Results - Labs CBC & Chem 7: 03/29/18 05:20 03/29/18 05:20 Laboratory Results - last 24 hr 03/29/18 03/30/18 03/30/18 20:15 03:17 08:17 POC Glucose 94 85 Troponin I Less than 0.02 L 03/30/18 12:21 POC Glucose 103 Troponin I Assessment and Plan - Plan Seizure New onset. Neurology consult appreciated. - seizure precautions. - Ativan as needed. - trial of Keppra. - follow up with neurology as an outpt. Chest pain with history of CAD Currently chest pain free. Trops and EKG unremarkable. - continue aspirin, BB and statin. History of CVA With left sided weakness. - continue Eliquis, aspirin, statin. - consult PT. - d/c back to SNF. Case management assistance appreciated. Hypertension Well controlled. - resume home meds. PPx: Shane
== END 2018-03-30 19:26 ==
LOC: NEPC 05:06 → N06 05:06 → INTOOBSV 09:17 → NEDA 09:17 → N06 18:38
PROVIDERS: ADMIT Hospitalist; ATTEND Hospitalist